=== PATIENT | female | born 1950 | race Caucasian/White ===

== ENCOUNTER 2017-09-13 15:05 | Emergency (ER) | payer MEDICARE, BC ==
[~2017-09-13] VITALS: Ht 175.3 cm; Wt 74.4 kg
[~2017-09-13 15:05] MED LIST: ASPI81EC PO; DILT30 PO; FLUSAL1005 IH; OXYACE5T PO; Percocet 5-3251 EACH PO; TIOT18 IH
[2017-09-13 15:59] LABS: BASOPHILS ABSOLUTE AUTO 0.03 K/mm3 (0.00-0.23); BASOPHILS PERCENT AUTO 0 % (0-2); EOSINOPHILS ABSOLUTE AUTO 0.12 K/mm3 (0.00-0.68); EOSINOPHILS PERCENT AUTO 2 % (0-6); Hemoglobin 13.3 g/dL (11.5-16.0); IMMATURE GRAN ABSOLUTE AUTO 0.02 K/mm3 (0.00-0.10); IMMATURE GRAN PERCENT AUTO 0 % (0-1); LYMPHOCYTES ABSOLUTE AUTO 2.55 K/mm3 (0.84-5.20); LYMPHOCYTES PERCENT AUTO 36 % (21-46); MONOCYTES ABSOLUTE AUTO 0.39 K/mm3 (0.16-1.47); MONOCYTES PERCENT AUTO 6 % (4-13); Mean Corpuscular HGB 30.9 pg (26.0-34.0); Mean Corpuscular HGB Conc 33.3 g/dL (31.5-36.5); Mean Corpuscular Volume 93 fL (80-100); Mean Platelet Volume 9.6 fL (9.1-12.4); NEUTROPHILS ABSOLUTE AUTO 3.96 K/mm3 (1.96-9.15); NEUTROPHILS PERCENT AUTO 56 % (41-73); Platelet Count 197 K/mm3 (150-400); RDW Coefficient Variation 13.1 % (11.7-14.2); RDW Standard Deviation 44.3 fL (35.1-46.3); White Blood Cell Count 7.07 K/mm3 (4.00-11.30)
[2017-09-13] MEDS ORDERED: VITAMIN B122500 MC1 PO (16:08)
[2017-09-13] MEDS ORDERED: ERGO400 PO (16:09)
[2017-09-13] MEDS ORDERED: Cvs Glucosamin1 EAC2 PO (16:09)
[2017-09-13 16:20] LABS: Alanine Aminotransfer (ALT/SGP 15 U/L (12-78); Albumin, Blood 3.6 g/dL (3.4-5.0); Alk Phos 88 U/L (50-136); Anion Gap 5 mmol/L (6-16); Aspartate Aminotrans (AST/SGOT 20 U/L (12-37); Bilirubin, Total 0.4 mg/dL (0.1-1.0); Blood Urea Nitrogen 17 mg/dL (8-24); Bun/Creatinine Ratio 29.4 (12.0-20.0); CO2, Blood 28 mmol/L (21-32); Calcium, Blood 8.5 mg/dL (8.5-10.1); Chloride, Blood 105 mmol/L (98-108); Creatinine, Blood 0.58 mg/dL (0.40-1.00); Globulin, Blood 3.5 g/dL (2.2-4.0); Glomerular Filtration Rate >60 (60-); Glucose, Blood 103 mg/dL (70-99); Potassium, Blood 3.9 mmol/L (3.5-5.5); Sodium, Blood 138 mmol/L (136-145); Total Protein, Blood 7.1 g/dL (6.4-8.2); Troponin I <0.015 ng/mL (0.000-0.040)
== END 2017-09-13 17:27 | disposition home or self-care (01) ==
LOC: ER 15:05
PROVIDERS: Emergency Medicine
DX: R07.89 Other chest pain (principal); I48.91 Unspecified atrial fibrillation; J44.9 Chronic obstructive pulmonary disease, unspecified; Z88.8 Allergy status to other drugs, medicaments and biological substances; Z79.82 Long term (current) use of aspirin; Z79.899 Other long term (current) drug therapy
CPT/HCPCS: 36415; 71046; 80053; 84484; 85025; 93005; 93010; 99283

== ENCOUNTER 2018-02-28 20:01 | Emergency (ER) | payer MEDICARE, BC ==
[~2018-02-28] VITALS: Ht 175.3 cm; Wt 70.3 kg
[~2018-02-28 20:01] MED LIST changes: +Cvs Glucosamin1 EAC2 PO; +ERGO400 PO; +VITAMIN B122500 MC1 PO
[2018-02-28] MEDS ORDERED: GABA100 PO (20:34)
[2018-02-28] MEDS ORDERED: MONT10T PO (20:35)
[2018-02-28] MEDS ORDERED: EPIPEN 2-P0.3 MG/0.3 IM (21:45)
[2018-02-28] MEDS ORDERED: Prednisone20 MG PO (21:45)
== END 2018-02-28 22:11 | disposition home or self-care (01) ==
LOC: ER 20:01
DX: R21 Rash and other nonspecific skin eruption (principal); T78.49XA Other allergy, initial encounter; I48.91 Unspecified atrial fibrillation; J44.9 Chronic obstructive pulmonary disease, unspecified; Z88.1 Allergy status to other antibiotic agents; Z88.6 Allergy status to analgesic agent; Z88.8 Allergy status to other drugs, medicaments and biological substances; Z79.899 Other long term (current) drug therapy; Z79.82 Long term (current) use of aspirin; Z87.891 Personal history of nicotine dependence
CPT/HCPCS: 36415; 94640; 96374; 96375; 99283-25; J1200; J2930; J3490; J7030